=== PATIENT | male | born 1980 | race Caucasian/White ===

== ENCOUNTER 2025-08-30 15:53 | Emergency (ER) | payer OTHER ==
[~2025-08-30] VITALS: Ht 172.7 cm; Wt 91.0 kg
[2025-08-30 15:58] VITALS: TEMP 36.8; O2SAT 98
[2025-08-30] MEDS: KETOROLAC 30MG/ML VIAL IM ONE (19:15)
[2025-08-30] MEDS ORDERED: LIDO700A30 TP (20:54)
[2025-08-30] MEDS ORDERED: IBUP-2030 MT (20:54)
[2025-08-30] MEDS ORDERED: CYCL10TA21 MT (20:54)
[2025-08-30] MEDS: LIDOCAINE 5% PATCH TOP STA (20:57)
[2025-08-30 20:58] VITALS: BP 141/100; PULSE 68; RESP 16; O2SAT 100
[2025-08-30] MEDS: LIDOCAINE 5% PATCH TOP SCH (21:00)
[2025-08-30] MEDS: KETOROLAC 30MG/ML VIAL IM SCH (21:00)
== END 2025-08-30 21:06 | disposition home or self-care (01) ==
LOC: ER 15:53
DX: M50.30 Other cervical disc degeneration, unspecified cervical region (principal); M25.511 Pain in right shoulder; M25.531 Pain in right wrist; R07.89 Other chest pain; M79.631 Pain in right forearm; M79.621 Pain in right upper arm; V43.52XA Car driver injured in collision with other type car in traffic accident, initial encounter; Y93.89 Activity, other specified; Y92.410 Unspecified street and highway as the place of occurrence of the external cause; Y99.8 Other external cause status
CPT/HCPCS: 71101; 72040; 73030; 73070; 73090; 73100; 99284; J1885